=== PATIENT | female | born 1985 | race Caucasian/White ===

== ENCOUNTER 2018-04-07 11:05 | Emergency (ER) | payer MEDICARE ==
[2018-04-07 11:22] VITALS: BP 141/95
[2018-04-07] MEDS ORDERED: oxyCODONE 5 MG TABLET PO STA (11:45)
--- NOTE | 2018-04-07 11:48 | ED Physician Documentation ---
PD HPI HEENT - Stated complaint Stated Complaint: R EAR PX - Chief complaint Chief Complaint: Heent - History obtained from History obtained from: Patient - History of Present Illness Timing - onset: Other (For about a week she has had atraumatic right ear pain with swelling and a sensation of the ear being clogged. No left ear pain or Upper respiratory symptoms otherwise.) Review of Systems Constitutional: denies: Fever, Chills Ears: reports: Ear pain, Drainage/discharge Nose: denies: Rhinorrhea / runny nose, Congestion PD PAST MEDICAL HISTORY - Past Medical History Past Medical History: No - Past Surgical History Past Surgical History: No - Present Medications Home Medications: Ambulatory Orders Medication Instructions Recorded Confirmed Ibuprofen [Motrin] 600 mg PO ONCE 04/07/18 04/07/18 Neomycin/Polymyx/Hc Otic Drops 4 drops OT TID #1 bottle 04/07/18 [Cortisporin Ear Susp] oxyCODONE/ACET 5/325 [Percocet 5 1 each PO Q4-6H PRN #15 tablet 04/07/18 mg/325 mg] - Allergies Allergies/Adverse Reactions: Allergies Allergy/AdvReac Type Severity Reaction Status Date / Time erythromycin base Allergy Anaphylaxis Verified 04/07/18 11:23 Penicillins Allergy Hives Verified 04/07/18 11:23 acetaminophen [From Vicodin] AdvReac Nausea Verified 04/24/14 23:07 hydrocodone bitartrate * AdvReac Nausea Verified 04/24/14 23:07 [From Vicodin] - Social History Does the pt smoke?: No Smoking Status: Never smoker Does the pt drink ETOH?: No Does the pt have substance abuse?: No - Immunizations Immunizations are current?: Yes - POLST Patient has POLST: No PD ED PE NORMAL - Vitals Vital signs reviewed: Yes - General General: Alert and oriented X 3, No acute distress - HEENT HEENT: Other (She has external otitis on the right, left TM and right TM are normal. No mastoid tenderness.) - Neck Neck: Supple, no meningeal sign, No bony TTP - Neuro Neuro: Alert and oriented X 3, No motor deficit, Normal speech Results - Vitals Vitals: Vital Signs - 24 hr 04/07/18 11:18 Temperature 36.3 C L Heart Rate 92 Respiratory 18 Rate Blood Pressure 141/95 H O2 Saturation 100 Oxygen O2 Source Room air Departure - Departure Disposition: Home, Self Care Clinical Impression: External otitis of right ear Qualifiers: Otitis externa type: diffuse Chronicity: acute Qualified Code(s): H60.311 - Diffuse otitis externa, right ear Condition: Good Record reviewed to determine appropriate education?: Yes Instructions: ED Otitis Externa Prescriptions: Neomycin/Polymyx/Hc Otic Drops [Cortisporin Ear Susp] 4 drops OT TID #1 bottle oxyCODONE/ACET 5/325 [Percocet 5 mg/325 mg] 1 each PO Q4-6H PRN #15 tablet PRN Reason: Pain Comments: Call your doctor to arrange a follow-up appointment, make the next available appointment. In the interim, return anytime if worse or if new symptoms develop. Your blood pressure was elevated today on check into the emergency department. This does not mean that you have hypertension, it is a common phenomenon to come to the emergency department and have elevated blood pressure. I recommend that you see your primary care physician within the week to have it rechecked when you are feeling better.
== END 2018-04-07 11:54 | disposition home or self-care (01) ==
LOC: ED 11:05
DX: H60.311 Diffuse otitis externa, right ear (principal); R03.0 Elevated blood-pressure reading, without diagnosis of hypertension
CPT/HCPCS: 99283; A9270

== ENCOUNTER 2018-05-23 02:31 | Emergency (ER) | payer MEDICARE ==
--- NOTE | 2018-05-23 02:42 | ED Physician Documentation ---
PD HPI UPPER EXT INJURY - Stated complaint Stated Complaint: LT HAND INJURY - Chief complaint Chief Complaint: Trauma Ext - History obtained from History obtained from: Patient - History of Present Illness Location: Left Type of injury: Crush Where injury occurred: Other (local pharmacy) Timing - onset: Enter time (19:30), Today Timing - details: Abrupt onset Pain level now: 8 Improved by: Rest Worsened by: Moving, Palpating Similar symptoms before: Has not had sx before Recently seen: Not recently seen - Additonal information Additional information: patient is right-hand dominant. At 7:30 PM, her left hand got caught in closing bathroom door at local pharmacy, c/o increasing pain and swelling of left 2nd and 3rd fingers. Review of Systems Musculoskeletal: reports: Extremity pain, Extremity swelling Neurologic: denies: Focal weakness, Numbness PD PAST MEDICAL HISTORY - Past Medical History Past Medical History: No - Past Surgical History Past Surgical History: No - Present Medications Home Medications: Ambulatory Orders Medication Instructions Recorded Confirmed Ibuprofen [Motrin] 600 mg PO ONCE 04/07/18 04/07/18 Neomycin/Polymyx/Hc Otic Drops 4 drops OT TID #1 bottle 04/07/18 [Cortisporin Ear Susp] oxyCODONE/ACET 5/325 [Percocet 5 1 each PO Q4-6H PRN #15 tablet 04/07/18 mg/325 mg] oxyCODONE/ACET 5/325 [Percocet 5 1 each PO Q4-6H PRN #14 tablet 05/23/18 mg/325 mg] - Allergies Allergies/Adverse Reactions: Allergies Allergy/AdvReac Type Severity Reaction Status Date / Time erythromycin base Allergy Anaphylaxis Verified 05/23/18 02:37 Penicillins Allergy Hives Verified 05/23/18 02:37 acetaminophen [From Vicodin] AdvReac Nausea Verified 05/23/18 02:37 hydrocodone bitartrate * AdvReac Nausea Verified 05/23/18 02:37 [From Vicodin] - Social History Does the pt smoke?: No Smoking Status: Never smoker Does the pt drink ETOH?: No Does the pt have substance abuse?: No - Immunizations Immunizations are current?: Yes - POLST Patient has POLST: No PD ED PE NORMAL - Vitals Vital signs reviewed: Yes - General General: Alert and oriented X 3, Well developed/nourished, Other (tearful) - Neuro Neuro: No motor deficit, No sensory deficit PD ED PE EXPANDED - Extremities [place] UE/Hands Visual: 1 - bruising, swelling, tenderness Results - Vitals Vitals: Vital Signs - 24 hr 05/23/18 05/23/18 02:34 04:02 Temperature 36.3 C L Heart Rate 102 H 88 Respiratory 18 16 Rate Blood Pressure 141/92 H 136/74 H O2 Saturation 97 96 Oxygen O2 Source Room air - Rads (name of study) left hand xrays Radiology: Prelim report reviewed, See rad report Procedures - Splint (location) Upper extremity left Splint applied by: Physician, Nurse Type of splint: Fiberglass, Other (radial gutter) Other: Patient tolerated well, No complications, Neurovascular intact, Good alignment PD MEDICAL DECISION MAKING - ED course Complexity details: reviewed results, re-evaluated patient, considered differential, d/w patient Departure - Departure Disposition: 01 Home, Self Care Clinical Impression: Crushed hand and fingers Qualifiers: Encounter type: initial encounter Laterality: left Qualified Code(s): S67.22XA - Crushing injury of left hand, initial encounter Condition: Good Instructions: ED Crush Injury Finger No Fx, ED Splint Care Fiberglass Follow-Up: Jaiden Matos MD [Provider Admit Priv/Credential] - Prescriptions: oxyCODONE/ACET 5/325 [Percocet 5 mg/325 mg] 1 each PO Q4-6H PRN #14 tablet PRN Reason: Pain Discharge Date/Time: 05/23/18 04:08
[2018-05-23] MEDS ORDERED: oxyCODONE 5 MG TABLET PO STA (02:47)
--- NOTE | 2018-05-23 03:17 | XRAY Report ---
Reason: slammed in bathroom door Procedure Date: 05/23/2018 Accession Number: [id number] / [id number] Procedure: XR - Hand 3 View LT CPT Code: FULL RESULT: EXAM: LEFT HAND RADIOGRAPHY EXAM DATE: 05/23/2018 03:04 AM. CLINICAL HISTORY: Slammed in bathroom door. COMPARISON: None. TECHNIQUE: 3 views. FINDINGS: Bones: Normal. No fractures or bone lesions. Joints: Normal. No subluxations. Soft Tissues: Normal. No soft tissue swelling. IMPRESSION: Normal hand radiography. RADIA
[2018-05-23 04:03] VITALS: BP 136/74
== END 2018-05-23 04:08 | disposition home or self-care (01) ==
LOC: ED 02:31
DX: S67.22XA Crushing injury of left hand, initial encounter (principal); S67.191A Crushing injury of left index finger, initial encounter; S67.193A Crushing injury of left middle finger, initial encounter; W23.0XXA Caught, crushed, jammed, or pinched between moving objects, initial encounter; Y92.512 Supermarket, store or market as the place of occurrence of the external cause
CPT/HCPCS: 29125; 73130; 99283; A9270

== ENCOUNTER 2018-07-11 23:39 | Outpatient (CLI) | payer MEDICARE | END 2018-07-11 23:40 | disposition critical access hospital (66) | LOC: EMS 23:39 | PROVIDERS: ATTEND Surgery | DX: R10.9 Unspecified abdominal pain (principal) | CPT/HCPCS: A0425; A0427 ==

== ENCOUNTER 2018-07-12 00:05 | Emergency (ER) | payer MEDICARE ==
[2018-07-12] MEDS ORDERED: IOVERSOL 320 100 ML VIAL IVP ONE ×2 (00:06→00:49)
--- NOTE | 2018-07-12 00:11 | ED Physician Documentation ---
PD HPI ABD PAIN - Stated complaint Stated Complaint: ABD PAIN - History obtained from History obtained from: Patient - History of Present Illness Timing - onset: How many hours ago (3) Timing - details: Abrupt onset, Waxing and waning Pain level max: 10 Pain level now: 10 Quality: Pain Location: LUQ Radiation: Left flank Improved by: Meds (improved with fentanyl en route given by medics, total of 150 micrograms) Worsened by: Moving, Palpation Associated symptoms: Nausea, Vomiting. 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 no h/o similar symptoms. BIBA, improvement with fentanyl en route Review of Systems Constitutional: denies: Fever, Chills, Sweats Cardiac: reports: Reviewed and negative Respiratory: reports: Reviewed and negative GI: reports: Abdominal Pain, Nausea, Vomiting. 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 - Present Medications Home Medications: Ambulatory Orders Medication Instructions Recorded Confirmed Ibuprofen [Motrin] 600 mg PO ONCE 04/07/18 04/07/18 Neomycin/Polymyx/Hc Otic Drops 4 drops OT TID #1 bottle 04/07/18 [Cortisporin Ear Susp] oxyCODONE/ACET 5/325 [Percocet 5 1 each PO Q4-6H PRN #15 tablet 04/07/18 mg/325 mg] oxyCODONE/ACET 5/325 [Percocet 5 1 each PO Q4-6H PRN #14 tablet 05/23/18 mg/325 mg] Oxycodone HCl/Acetaminophen 1 - 2 each PO Q6H PRN #20 tablet 07/12/18 [Percocet 5-325 mg Tablet] Tamsulosin HCl [Flomax] 0.4 mg PO DAILY #7 capsule 07/12/18 - Allergies Allergies/Adverse Reactions: Allergies Allergy/AdvReac Type Severity Reaction Status Date / Time erythromycin base Allergy Anaphylaxis Verified 05/23/18 02:37 Penicillins Allergy Hives Verified 05/23/18 02:37 acetaminophen [From Vicodin] AdvReac Nausea Verified 05/23/18 02:37 hydrocodone bitartrate * AdvReac Nausea Verified 05/23/18 02:37 [From Vicodin] - Social History Does the pt smoke?: No Smoking Status: Never smoker Does the pt drink ETOH?: No Does the pt have substance abuse?: No - Immunizations Immunizations are current?: Yes - POLST Patient has POLST: No PD ED PE NORMAL - Vitals Vital signs reviewed: Yes - General General: Alert and oriented X 3, Well developed/nourished, Other (obvious painful distress) - HEENT HEENT: Moist mucous membranes - Cardiac Cardiac: RRR, No murmur - Respiratory Respiratory: No respiratory distress, Clear bilaterally - Abdomen Abdomen: Normal bowel sounds, Soft, Non tender, Non distended - Back Back: No CVA TTP - Derm Derm: Normal color, Warm and dry, No rash Results - Vitals Vitals: Vital Signs - 24 hr 07/12/18 07/12/18 07/12/18 00:06 00:12 01:58 Temperature 36.5 C Heart Rate 88 93 65 Respiratory 17 18 11 L Rate Blood Pressure 134/90 H 134/93 H 136/96 H O2 Saturation 99 97 93 07/12/18 03:27 Temperature Heart Rate 88 Respiratory 17 Rate Blood Pressure 123/84 H O2 Saturation 100 Oxygen O2 Source Room air - Labs Labs: Laboratory Tests 07/12/18 07/12/18 07/12/18 00:30 00:30 01:15 WBC 16.5 H RBC 4.70 Hgb 13.2 Hct 40.3 MCV 85.7 MCH 28.0 MCHC 32.7 RDW 14.2 Plt Count 408 MPV 7.7 L Neut # (Auto) 13.7 H Lymph # (Auto) 1.7 [place] # (Auto) 0.9 Eos # (Auto) 0.2 Baso # (Auto) 0.1 Absolute Nucleated RBC 0.00 Nucleated RBC % 0.0 Sodium 136 Potassium 4.0 Chloride 104 Carbon Dioxide 24 Anion Gap 8.0 BUN 15 Creatinine 0.9 Estimated GFR (MDRD) 73 L Glucose 126 H Calcium 9.1 Total Bilirubin 0.3 AST 20 ALT 18 Alkaline Phosphatase 85 Total Protein 7.4 Albumin 4.0 Globulin 3.4 Albumin/Globulin Ratio 1.2 Lipase 31 Urine Color YELLOW Urine Clarity HAZY Urine pH 8.5 H Ur Specific [place] 1.010 Urine Protein NEGATIVE Urine Glucose (UA) NEGATIVE Urine Ketones NEGATIVE Urine Occult Blood LARGE H Urine Nitrite NEGATIVE Urine Bilirubin NEGATIVE Urine Urobilinogen 0.2 (NORMAL) Ur Leukocyte Esterase NEGATIVE Urine RBC TNTC H Urine WBC 0-3 Ur Squamous Epith Cells MOD Squamous H Urine Bacteria Few Ur Microscopic Review INDICATED Urine Culture Comments NOT INDICATED Urine HCG, Qual NEGATIVE - Rads (name of study) CT A/P Radiology: Prelim report reviewed, See rad report PD MEDICAL DECISION MAKING - ED course Complexity details: reviewed results, re-evaluated patient, considered di fferential, d/w patient Departure - Departure Disposition: 01 Home, Self Care Clinical Impression: Renal colic Condition: Good Instructions: ED Stone Renal W Colic Follow-Up: [facility] [Provider Group] [facility] [Provider Group] Prescriptions: Oxycodone HCl/Acetaminophen [Percocet 5-325 mg Tablet] 1 - 2 each PO Q6H PRN #20 tablet PRN Reason: pain Tamsulosin HCl [Flomax] 0.4 mg PO DAILY #7 capsule Discharge Date/Time: 07/12/18 03:30
[2018-07-12] MEDS: SODIUM CHLORIDE 0.9% 1,000 ML IV STA (00:38)
[2018-07-12] MEDS: HYDROmorphone 1 MG/ML CARPUJECT IVP STA ×2 (00:38→01:38)
[2018-07-12 00:40] LABS: BASOPHILS # (AUTO) 0.1 10^3/uL (0.0-0.1); BASOPHILS % (AUTO) 0.8 %; EOSINOPHILS # (AUTO) 0.2 10^3/uL (0.0-0.7); HGB - HEMOGLOBIN 13.2 g/dL (12.0-16.0); LYMPHOCYTES # (AUTO) 1.7 10^3/uL (1.5-3.5); LYMPHOCYTES % (AUTO) 10.3 %; MEAN CORPUSCULAR HGB CONC 32.7 g/dL (32.0-36.0); MEAN CORPUSCULAR VOLUME 85.7 fL (81.0-99.0); MEAN PLATELET VOLUME 7.7 fL (7.9-10.8); MONOCYTES # (AUTO) 0.9 10^3/uL (0.0-1.0); MONOCYTES % (AUTO) 5.2 %; NEUTROPHILS # (AUTO) 13.7 10^3/uL (1.5-6.6); NEUTROPHILS % (AUTO) 82.7 %; PLT - PLATELET COUNT 408 10^3/uL (130-450); RED CELL DISTRIBUTION WIDTH 14.2 % (12.0-15.0); WHITE BLOOD COUNT 16.5 x10^3/uL (4.8-10.8)
[2018-07-12 00:51] LABS: ALBUMIN/GLOBULIN RATIO 1.2 (1.0-2.2); BILIRUBIN,TOTAL 0.3 mg/dL (0.2-1.0); CALCIUM 9.1 mg/dL (8.5-10.3); CREATININE 0.9 mg/dL (0.4-1.0); TOTAL PROTEIN 7.4 g/dL (6.7-8.2)
[2018-07-12] MEDS: diphenhydrAMINE INJ 50 MG/ML VIAL IVP STA (01:09)
[2018-07-12] MEDS: IOVERSOL 320 100 ML VIAL IVP ONE (01:36)
[2018-07-12] MEDS: TAMSULOSIN 0.4 MG CAPSULE PO STA (01:38)
[2018-07-12] MEDS: KETOROLAC 30 MG/ML VIAL IVP STA (01:38)
--- NOTE | 2018-07-12 01:55 | CT Report ---
Reason: LLQ/flank pain Procedure Date: 07/12/2018 Accession Number: [id number] / [id number] Procedure: CT - Abdomen/Pelvis W CPT Code: FULL RESULT: EXAM: CT ABDOMEN AND PELVIS EXAM DATE: 07/12/2018 01:37 AM. CLINICAL HISTORY: LLQ/flank pain. COMPARISONS: None. TECHNIQUE: Routine helical CT imaging was performed through the abdomen and pelvis. IV contrast: 80ml [id number]. Enteric contrast: No. Reconstructions: Coronal and sagittal. In accordance with CT protocol optimization, one or more of the following dose reduction techniques were utilized for this exam: automated exposure control, adjustment of mA and/or KV based on patient size, or use of iterative reconstructive technique. FINDINGS: Lung Bases: Unremarkable. Liver: Normal. No masses. Gallbladder/Bile Ducts: There is cholelithiasis. Spleen: Normal. Pancreas: Normal. Adrenal Glands: Normal. Kidneys: The kidneys are normally positioned. There is left-sided hydronephrosis and a mildly dilated ureter secondary to a partially obstructing, 2 mm calculus at the left ureterovesical junction. Peritoneal Cavity/Bowel: Normal. No free fluid, free air or adenopathy. No masses or acute inflammatory process. The appendix is well visualized and normal. Pelvic Organs: Normal. The bladder and visualized pelvic organs are within normal limits. Prominent follicles are seen associated with both ovaries. Vasculature: No aneurysms or other significant abnormality. Bones: No significant abnormality. Other: None. IMPRESSION: 1. Partially obstructing calculus at the left ureterovesical junction resulting in dilated left ureter and mild left-sided hydronephrosis. RADIA
[2018-07-12 01:56] LABS: BILIRUBIN,URINE NEGATIVE (NEGATIVE); GLUCOSE, URINE (UA) NEGATIVE (NEGATIVE); KETONES,URINE (UA) NEGATIVE (NEGATIVE); LEUKOCYTE ESTERASE, URINE NEGATIVE (NEGATIVE); NITRITE,URINE NEGATIVE (NEGATIVE); OCCULT BLOOD,URINE LARGE (NEGATIVE); PH,URINE 8.5 PH (5.0-7.5); PROTEIN,URINE NEGATIVE (NEGATIVE); UROBILINOGEN,URINE 0.2 (NORMAL) E.U./dL (NORMAL)
[2018-07-12] MEDS: LIDOCAINE-MPF 2% 7 ML in SODIUM CHLORIDE 0.9% 50 ML IV STA (01:57)
[2018-07-12 01:59] LABS: CLARITY,URINE HAZY (CLEAR); HCG UR QUAL NEGATIVE
[2018-07-12 02:03] LABS: BACTERIA,URINE Few /HPF (None Seen); RBC,URINE TNTC /HPF (0-5); SQUAMOUS EPITHELIAL CELL,UR MOD Squamous (<= Few)
[2018-07-12 03:27] VITALS: BP 123/84
[2018-07-12] MEDS: oxyCODONE/ACET 5/325 Prepack 4 PO STA (03:32)
== END 2018-07-12 03:30 | disposition home or self-care (01) ==
LOC: EDSEX → EDUNIT# → ED 00:05
DX: N13.2 Hydronephrosis with renal and ureteral calculous obstruction (principal)
CPT/HCPCS: 36415; 74177; 80053; 81001; 81003; 81025; 83690; 85025; 87086; 96374; 96375; 96376; 99283; 99284

== ENCOUNTER 2018-10-21 14:02 | Emergency (ER) | payer MEDICARE ==
[2018-10-21 14:11] VITALS: BP 134/82
[2018-10-21] MEDS ORDERED: cephALEXin 250 MG CAPSULE PO STA (14:31)
[2018-10-21] MEDS ORDERED: oxyCODONE 5 MG TABLET PO STA (14:31)
--- NOTE | 2018-10-21 14:33 | ED Physician Documentation ---
PD HPI LOWER EXT INJURY - Stated complaint Stated Complaint: L FOOT INJURY - Chief complaint Chief Complaint: Wound - History obtained from History obtained from: Patient, Family - History of Present Illness PD HPI LOW EXT INJURY LOCATION: Left, Other (foot,) Type of injury: Puncture wound (dish washer vs foot) Timing - onset: How many hours ago (1) Timing - duration: Hours (1) Timing - details: Abrupt onset Pain level max: 9 Pain level now: 9 Improved by: Rest, Immobilization Worsened by: Moving, Palpating Associated symptoms: Swelling. No: Weakness, Numbness, Tingling Contributing factors: No: Anticoagulated Recently seen: Not recently seen - Additional information Additional information: Patient states that she did not know her and use the dish washer and she wanted to remove dirt from her foot, put the nozzle in between her first and second toes, squeezed the trigger and pressured water shot at her foot. 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 - Present Medications Home Medications: Ambulatory Orders Medication Instructions Recorded Confirmed Ibuprofen [Motrin] 600 mg PO ONCE 04/07/18 04/07/18 Neomycin/Polymyx/Hc Otic Drops 4 drops OT TID #1 bottle 04/07/18 [Cortisporin Ear Susp] oxyCODONE/ACET 5/325 [Percocet 5 1 each PO Q4-6H PRN #15 tablet 04/07/18 mg/325 mg] oxyCODONE/ACET 5/325 [Percocet 5 1 each PO Q4-6H PRN #14 tablet 05/23/18 mg/325 mg] Oxycodone HCl/Acetaminophen 1 - 2 each PO Q6H PRN #20 tablet 07/12/18 [Percocet 5-325 mg Tablet] Tamsulosin HCl [Flomax] 0.4 mg PO DAILY #7 capsule 07/12/18 Cephalexin [Keflex] 500 mg PO Q6H #28 capsule 10/21/18 Oxycodone HCl/Acetaminophen 1 - 2 each PO Q6H PRN #10 tablet 10/21/18 [Percocet 5-325 mg Tablet] - Allergies Allergies/Adverse Reactions: Allergies Allergy/AdvReac Type Severity Reaction Status Date / Time erythromycin base Allergy Anaphylaxis Verified 05/23/18 02:37 Penicillins Allergy Hives Verified 05/23/18 02:37 acetaminophen [From Vicodin] AdvReac Nausea Verified 05/23/18 02:37 hydrocodone bitartrate * AdvReac Nausea Verified 05/23/18 02:37 [From Vicodin] - Social History Does the pt smoke?: No Smoking Status: Never smoker Does the pt drink ETOH?: No Does the pt have substance abuse?: No - Immunizations Immunizations are current?: Yes - POLST Patient has POLST: No PD ED PE NORMAL - Vitals Vital signs reviewed: Yes - General General: Alert and oriented X 3, No acute distress - HEENT HEENT: Moist mucous membranes - Neck Neck: Supple, no meningeal sign - Cardiac Cardiac: RRR - Respiratory Respiratory: No respiratory distress, Clear bilaterally - Derm Derm: Warm and dry - Extremities Extremities: Other (Left foot - Small abrasion to the webspace in between the first and second toe. Compartments are soft. Brisk cap refill. Mild swelling. Neurovascularly intact) - Neuro Neuro: Alert and oriented X 3 Results - Vitals Vitals: Vital Signs - 24 hr 10/21/18 14:08 Temperature 36.6 C Heart Rate 110 H Respiratory 18 Rate Blood Pressure 134/82 H O2 Saturation 99 Oxygen O2 Source Room air PD MEDICAL DECISION MAKING - ED course Complexity details: re-evaluated patient, considered differential, d/w patient, d/w senior energy consultant ED course: 33-year-old female with a dish washer injury to the left foot. Water only. Discussed the case with orthopedics on-call, Dr. Zhao, who recommends placing in a walking boot, on antibiotics and follow-up in the office tomorrow for a recheck and to ensure that her compartments stay soft and wound check. Pain medication will be written for home as well. Patient counseled regarding signs and symptoms of compartment syndrome and reasons for emergent return. Patient counseled regarding signs and symptoms for which I believe and urgent re- evaluation would be necessary. Patient with good understanding of and agreement to plan and is comfortable going home at this time This document was made in part using voice recognition software. While efforts are made to proofread this document, sound alike and grammatical errors may occur. Departure - Departure Disposition: 01 Home, Self Care Clinical Impression: Penetrating foot wound Qualifiers: Encounter type: initial encounter Laterality: left Qualified Code(s): S91.332A - Puncture wound without foreign body, left foot, initial encounter Condition: Good Instructions: ED Wound Puncture Foot Follow-Up: Emilia Zhao MD [Provider Admit Priv/Credential] - Tomorrow Prescriptions: Cephalexin [Keflex] 500 mg PO Q6H #28 capsule Oxycodone HCl/Acetaminophen [Percocet 5-325 mg Tablet] 1 - 2 each PO Q6H PRN #10 tablet PRN Reason: pain Comments: Continue the antibiotics today. You must follow-up with orthopedics tomorrow for repeat evaluation of your foot. Call them first thing in the morning. They should be open by [address] Zhao will see you tomorrow. Return for uncontrolled pain or worsening symptoms. Do not drink alcohol or drive while on narcotic pain medicine. Note that many narcotic pain relievers also contain tylenol/acetaminophen. Please ensure that your total dose of acetaminophen from all sources does not exceed 3 grams (3000mg) per day. You may constipated on this medication, take a stool softener such as "Colace" twice a day while you are on it. Also recommend a [id number]-rqpvami laxative such as senna or MiraLAX any day that you do not have a bowel movement. If you received narcotic pain medication in the emergency department, do not drive or operate machinery for the next 24 hours. Discharge Date/Time: 10/21/18 15:08
== END 2018-10-21 15:08 | disposition home or self-care (01) ==
LOC: ED 14:02
DX: S91.332A Puncture wound without foreign body, left foot, initial encounter (principal); W29.8XXA Contact with other powered hand tools and household machinery, initial encounter; Y93.89 Activity, other specified
CPT/HCPCS: 99283; A9270

== ENCOUNTER 2021-02-08 13:55 | Emergency (ER) | payer MEDICARE ==
--- NOTE | 2021-02-08 14:41 | XRAY Report ---
PROCEDURE: Elbow 3 View RT INDICATIONS: Trauma TECHNIQUE: 3 views of the elbow were acquired. COMPARISON: None FINDINGS: Bones: No fractures or dislocations. No suspicious bony lesions. Soft tissues: No elbow joint effusion. No suspicious soft tissue calcifications. IMPRESSION: No evidence acute bony abnormality of the right elbow. If clinical suspicion and/or symptoms persist, further assessment with repeat plain films or advanced imaging (e.g., CT, MRI, or bone scan) may be helpful for further assessment. Reviewed by: Jc Elizabeth MD on 02/08/2021 2:40 PM PDT Approved by: Jc Elizabeth MD on 02/08/2021 2:40 PM PDT Station ID: [id number]
--- NOTE | 2021-02-08 14:41 | XRAY Report ---
PROCEDURE: Forearm RT INDICATIONS: Trauma TECHNIQUE: 2 views of the forearm were acquired. COMPARISON: None FINDINGS: Bones: No fractures or dislocations. No suspicious bony lesions. Soft tissues: No suspicious soft tissue calcifications or masses. IMPRESSION: No evidence acute bony abnormality of the right forearm. Reviewed by: Jc Elizabeth MD on 02/08/2021 2:40 PM PDT Approved by: Jc Elizabeth MD on 02/08/2021 2:40 PM PDT Station ID: [id number]
--- NOTE | 2021-02-08 15:55 | ED Physician Documentation ---
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 Pt states it hurts to move the forearm. It has been swollen, but pt has not iced it, because it hurts too much, she states. No other injuries or complaints. Review of Systems Ten Systems: 10 systems reviewed and negative Constitutional: reports: Reviewed and negative Eyes: reports: Reviewed and negative Ears: reports: Reviewed and negative Nose: reports: Reviewed and negative Throat: reports: Reviewed and negative Cardiac: reports: Reviewed and negative Respiratory: reports: Reviewed and negative GI: reports: Reviewed and negative : reports: Reviewed and negative Skin: reports: Abrasion (s) Musculoskeletal: reports: Extremity pain, Extremity swelling Neurologic: reports: Reviewed and negative Psychiatric: reports: Reviewed and negative Endocrine: reports: Reviewed and negative Immunocompromised: reports: Reviewed and negative PD PAST MEDICAL HISTORY - Past Medical History Neuro: Migraines Psych: ADD/ADHD - Past Surgical History 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 - Present Medications Home Medications: Ambulatory Orders Medication Instructions Recorded Confirmed Acetaminophen/Cod 300/30 [Tylenol 2 each PO Q4-6H PRN #12 tablet 02/08/21 #3] - Allergies Allergies/Adverse Reactions: Allergies Allergy/AdvReac Type Severity Reaction Status Date / Time erythromycin base Allergy Anaphylaxis Verified 02/08/21 14:04 Penicillins Allergy Hives Verified 02/08/21 14:04 acetaminophen [From Vicodin] AdvReac Nausea Verified 02/08/21 14:04 hydrocodone bitartrate * AdvReac Nausea Verified 02/08/21 14:04 [From Vicodin] - Social History Does the pt smoke?: No Smoking Status: Never smoker Does the pt drink ETOH?: No Does the pt have substance abuse?: No - Immunizations Immunizations are current?: Yes - POLST Patient has POLST: No PD ED PE NORMAL - Vitals Vital signs reviewed: Yes - General General: Alert and oriented X 3, Other (crying) - HEENT HEENT: Atraumatic, PERRL, EOMI, Moist mucous membranes - Neck Neck: Supple, no meningeal sign - Cardiac Cardiac: Strong equal pulses - Respiratory Respiratory: No respiratory distress - Derm Derm: Normal color, Warm and dry, No rash, Other (MIld linear abrasions over dorsum of R forearm) - Extremities Extremities: No deformity, Other (Edema, tenderness of R forearm. No defo rmity.) - Neuro Neuro: Alert and oriented X 3, pigment and lacquer mixer 2-12 intact, No motor deficit, No sensory deficit, Normal speech - Psych Psych: Normal mood, Normal affect Results - Vitals Vitals: Vital Signs - 24 hr 02/08/21 02/08/21 14:04 16:13 Temperature 36.6 C 36.7 C Heart Rate 93 84 Respiratory 18 20 Rate Blood Pressure 144/96 H 146/106 H O2 Saturation 98 100 Oxygen O2 Source Room air - Rads (name of study) R forearm XR Radiology: Final report received, EMP read indepedently, See rad report PD MEDICAL DECISION MAKING - ED course Complexity details: reviewed results, re-evaluated patient, considered differential, d/w patient ED course: Pt's XR was negative. I d/w her that she has most likely bruised her arm. The pt states she can only take Percocet, because she is allergic to hydrocodone, and that she cannot ice the arm because it hurts too much. I have advised her to take ibuprofen, and have given her a prescription for Tylenol #3. Percocet is not appropriate for this injury. We have discussed the usual indications for return. Departure - Departure Disposition: 01 Home, Self Care Clinical Impression: Forearm contusion Qualifiers: Encounter type: initial encounter Laterality: right Qualified Code(s): S50.11XA - Contusion of right forearm, initial encounter Condition: Stable Instructions: ED Contusion Upper Ext Prescriptions: Acetaminophen/Cod 300/30 [Tylenol #3] 2 each PO Q4-6H PRN #12 tablet PRN Reason: Pain Comments: Your x-rays are negative. You may take anti-inflammatories as needed for your pain. You may also use an ice pack to help with the pain and swelling. Please pick your prescription up at [facility] in [place], where it has been electronically transmitted. Discharge Date/Time: 02/08/21 16:16
[2021-02-08 16:14] VITALS: BP 146/106
== END 2021-02-08 16:16 | disposition home or self-care (01) ==
LOC: ED 13:55
DX: S50.811A Abrasion of right forearm, initial encounter (principal); S50.11XA Contusion of right forearm, initial encounter; W18.39XA Other fall on same level, initial encounter
CPT/HCPCS: 99283

== ENCOUNTER 2021-07-02 15:43 | Emergency (ER) | payer MEDICARE ==
[2021-07-02 16:10] VITALS: BP 142/95
== END 2021-07-02 16:56 | disposition left against medical advice (07) ==
LOC: ED 15:43
DX: Z53.21 Procedure and treatment not carried out due to patient leaving prior to being seen by health care provider (principal)

== ENCOUNTER 2021-07-07 22:50 | Outpatient (CLI) | payer MEDICARE | END 2021-07-07 22:51 | disposition critical access hospital (66) | LOC: EMS 22:50 | DX: R51.9 Headache, unspecified (principal); R11.0 Nausea; Y04.8XXA Assault by other bodily force, initial encounter | CPT/HCPCS: A0425; A0429 ==

== ENCOUNTER 2021-07-07 23:31 | Emergency (ER) | payer MEDICARE ==
[2021-07-07] MEDS ORDERED: KETOROLAC 60 MG/2 ML VIAL IM STA (23:56)
[2021-07-07] MEDS ORDERED: ZOLPIDEM 5 MG TABLET PO STA (23:56)
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
[2021-07-08 00:34] VITALS: BP 104/65
== END 2021-07-08 00:35 | disposition home or self-care (01) ==
LOC: EDUNIT# → ED 23:31
DX: G47.00 Insomnia, unspecified (principal); S09.90XA Unspecified injury of head, initial encounter; W22.8XXA Striking against or struck by other objects, initial encounter; Z87.820 Personal history of traumatic brain injury
CPT/HCPCS: 96372; 99282; 99283; A9270

== ENCOUNTER 2021-11-02 07:46 | Emergency (ER) | payer MEDICARE ==
[2021-11-02 08:04] VITALS: BP 129/80
[2021-11-02] MEDS ORDERED: KETOROLAC 60 MG/2 ML VIAL IM STA (08:23)
[2021-11-02] MEDS ORDERED: lidocaine 1% 20 ML MDV SUBQ ONE (08:24)
[2021-11-02] MEDS ORDERED: SULFAMETH/TRIMETH DS 800/160 MG TABLET PO STA (08:51)
--- NOTE | 2021-11-02 08:54 | ED Physician Documentation ---
PD HPI SKIN - Stated complaint Stated Complaint: RIGHT LEG PX - Chief complaint Chief Complaint: Wound - History obtained from History obtained from: Patient - Additional information Additional information: The patient comes to the emergency department with chief complaint of "ingrown hair" on posterior right thigh. She states is been there for several days but now seems worse. She has a history of "staph infection". No fever or chills. No other complaints at this time. Review of Systems Ten Systems: 10 systems reviewed and negative Constitutional: reports: Reviewed and negative Eyes: reports: Reviewed and negative Ears: reports: Reviewed and negative Nose: reports: Reviewed and negative Throat: reports: Reviewed and negative Cardiac: reports: Reviewed and negative Respiratory: reports: Reviewed and negative GI: reports: Reviewed and negative : reports: Reviewed and negative Skin: reports: Lesions Musculoskeletal: reports: Reviewed and negative Neurologic: reports: Reviewed and negative Psychiatric: reports: Reviewed and negative Endocrine: reports: Reviewed and negative Immunocompromised: reports: Reviewed and negative PD PAST MEDICAL HISTORY - Past Medical History Past Medical History: Yes Cardiovascular: None Respiratory: None Neuro: Migraines Endocrine/Autoimmune: None GI: None MOBILE SALES ASSISTANT: None : None HEENT: None Psych: ADD/ADHD Musculoskeletal: None Derm: None - Past Surgical History 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 - Present Medications Home Medications: Ambulatory Orders Medication Instructions Recorded Confirmed Sulfamethox/Trimeth 800/160 1 each PO BID #14 tablet 11/02/21 [Bactrim Ds 800/160] Tramadol HCl [Ultram] 50 mg PO Q4HR PRN #12 tablet 11/02/21 - Allergies Allergies/Adverse Reactions: Allergies Allergy/AdvReac Type Severity Reaction Status Date / Time erythromycin base Allergy Anaphylaxis Verified 11/02/21 07:58 Penicillins Allergy Hives Verified 11/02/21 07:58 acetaminophen [From Vicodin] AdvReac Nausea Verified 11/02/21 07:58 hydrocodone bitartrate * AdvReac Nausea Verified 11/02/21 07:58 [From Vicodin] - Social History Does the pt smoke?: No Smoking Status: Current some day smoker Does the pt drink ETOH?: Yes Does the pt have substance abuse?: Yes Substance Use and Type: Marijuana - Immunizations Immunizations are current?: No Immunizations: Other immun not current - POLST Patient has POLST: No PD ED PE NORMAL - Vitals Vital signs reviewed: Yes - General General: Alert and oriented X 3, No acute distress, Well developed/nourished - HEENT HEENT: Atraumatic, PERRL, EOMI, Moist mucous membranes - Neck Neck: Supple, no meningeal sign - Respiratory Respiratory: No respiratory distress - Derm Derm: Warm and dry, Other (Approximately 6 cm diameter area of erythema mid post erior right thigh with centrally located 3.5 cm diameter area of induration with central fluctuance. No drainage. No other such lesions.) - Extremities Extremities: No deformity - Neuro Neuro: Alert and oriented X 3 - Psych Psych: Normal mood, Normal affect Results - Vitals Vitals: Vital Signs - 24 hr 11/02/21 07:58 Temperature 37.1 C Heart Rate 119 H Respiratory 19 Rate Blood Pressure 129/80 O2 Saturation 100 Oxygen O2 Source Room air Procedures - Abscess I&D (location) Right upper leg Preparation: Betadine, Lidocaine 1% Incision: Incised with scalpel, Purulent drainage, Irrigated, Other (Patient refused packing) Other: Pt tolerated well, Dressing applied, Antibiotic prescribed PD MEDICAL DECISION MAKING - ED course Complexity details: considered differential, d/w patient ED course: The patient agreed to I&D but refused, despite much discussion, to have packing done. I have advised the patient that if we do not pack the abscess cavity after incision and drainage, the patient runs the risk of the wound sealing off before antibiotics of been able to take effect enough, and the abscess can reform. The patient states she has had several abscesses drained and that she only had packing the first time and it made her sick to her stomach to have it done. She states that all of her I&D's after that, she has refused packing and has never had an issue with reformation of the abscess. She states she absolutely does not want packing and is willing to take the risk of reformation of the abscess, which does not think will happen. As such, I did not pack her wound at her insistence. Patient was given a dose of Toradol as well as a dose of Bactrim here in the emergency department. Her prescriptions, including Bactrim and Ultram, were sent to the pharmacy of her choice. We discussed the usual indications for return. Departure - Departure Disposition: 01 Home, Self Care Clinical Impression: Abscess Condition: Stable Instructions: ED Abscess IandD Prescriptions: Tramadol HCl [Ultram] 50 mg PO Q4HR PRN #12 tablet PRN Reason: Pain Sulfamethox/Trimeth 800/160 [Bactrim Ds 800/160] 1 each PO BID #14 tablet Comments: Your abscess has been incised and drained today. This should help the antibiotics to be more effective. You have declined to have your wound packed, which does increase the risk of reformation of the abscess. If the wound seals up and you feel that the area is growing larger again, you will need to have it looked at to see if it needs to be drained again. In the meantime, please apple picker your antibiotics and pain medication at the [facility] in [place]. Your prescription has been electronically transmitted to the pharmacy at your request. You have been given your first dose of antibiotics this morning in the emergency department and will be due for your next dose in the later afternoon or early evening. Please follow-up with your primary care physician as needed.
== END 2021-11-02 09:16 | disposition home or self-care (01) ==
LOC: ED 07:46
DX: L02.415 Cutaneous abscess of right lower limb (principal); F17.200 Nicotine dependence, unspecified, uncomplicated
CPT/HCPCS: 10060; 96372; 99283; A9270